=== PATIENT | female | born 1935 | race Hispanic/Latino ===

== ENCOUNTER 2025-07-14 06:04 | Day surgery (SDC) | payer MEDICARE ==
--- NOTE | 2025-07-10 14:41 | EKG ---
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
[2025-07-10 14:49] VITALS: PULSE 58; RESP 17; TEMP 98.2
[2025-07-10 14:58] LABS: IMMATURE GRANULOCYTE ABSOLUTE 0.01 K/uL (0-1); NUCLEATED RED BLOOD CELLS 0.0 % (0.0-0.19); PLATELET COUNT (AUTO) 197 K/uL (130-400); RED BLOOD CELL COUNT(AUTO) 3.90 MIL/uL (4.00-5.50); RED CELL DISTRIBUTION WIDTH 13.9 % (11.0-15.5); WHITE BLOOD COUNT (AUTO) 4.6 K/uL (4.8-10.8)
[2025-07-10 15:01] LABS: CREATININE 0.7 mg/dL (0.5-1.0); GLOMERULAR FILTR. RATE CALC 83.0 mL/min (>90); GLUCOSE,RANDOM 122.0 mg/dL (70-105); SODIUM SERUM 140.0 mmol/L (136-145); UREA NITROGEN, BLOOD 22.0 mg/dL (7-18)
[2025-07-10 15:02] LABS: INR 0.98 (0.85-1.15)
[~2025-07-14] VITALS: Ht 144.8 cm; Wt 44.8 kg
[2025-07-14] VITALS (9 sets, daily range): BP systolic 125–158; BP diastolic 52–80; PULSE 59–69; RESP 11–18; TEMP 98–98.4
[~2025-07-14 06:04] MED LIST: ASPI-1443 PO; ATOR10 PO; CARV3.12 PO; GARL10002 PO; LINA145C PO; LOSA50TA64 PO; MAGN250T10 PO; NIFE-79 PO; PERCT PO; VITAMIN E PO
[2025-07-14 07:01] LABS: APPEARANCE,URINE CLOUDY (CLEAR); GLUCOSE, URINE (UA) NEGATIVE (NEGATIVE); LEUKOCYTE ESTERASE ,URINE NEGATIVE Leu/uL (NEGATIVE); NITRATE,URINE NEGATIVE (NEGATIVE); OCCULT BLOOD,URINE NEGATIVE (NEGATIVE)
[2025-07-14 07:05] LABS: ADD UA MICROSCOPIC YES
[2025-07-14] MEDS ORDERED: LIDOCAINE HCL 400MG/20ML VIAL ONE (07:05)
[2025-07-14] MEDS ORDERED: HEParin-NS 1,000 UNIT/500 ML 1,000 ML IV ONE (07:05)
[2025-07-14] MEDS ORDERED: IODIXANOL 320 MG/ML 100 ML VIAL ONE (07:05)
[2025-07-14] MEDS ORDERED: NITROGLYCERIN 50MG VIAL ONE (07:06)
[2025-07-14 07:23] LABS: SQUAMOUS EPITHELIAL CELL,UR RARE /HPF (0-2)
[2025-07-14] MEDS: 0.9%NACL 1000ML 1,000 ML IV SCH (07:33)
[2025-07-14] MEDS ORDERED: MIDAZOLAM HCL 1 MG/ML 2ML VIAL ONE (07:34)
[2025-07-14] MEDS ORDERED: HEParin-NS 1,000 UNIT/500 ML 500 ML IV ONE (08:43)
[2025-07-14] MEDS ORDERED: ASPIRIN 325MG EC TAB PO ONE (09:45)
[2025-07-14] MEDS ORDERED: DEXTROSE 50%-WATER 50 ML DISP.SYRIN IV PRN (10:00)
[2025-07-14] MEDS ORDERED: 0.9%NACL 1000ML 1,000 ML IV SCH (10:00)
[2025-07-14] MEDS ORDERED: GLUCAGON 1MG KIT 1 MG ML IM PRN (10:00)
--- NOTE | 2025-07-14 10:20 | PRN ---
Procedure:Peripheral Angiogram Procedure Note Procedure Note: Peripheral Angiogram Date/Time of Service: 07/14/2025 Referring Physician: Dr. Echols Procedures Performed: Lower abdominal aortogram, peripheral angiogram with lower extremity arterial runoff, balloon angioplasty, balloon lithotripsy of the distal left posterior tibial artery Indications for Procedure: PAD, Cottle category 5 symptoms (left lower extremity) Nonhealing ulcer on the lateral aspect of the left foot Chronic pain syndrome HTN Description of Procedure: [After informed consent was obtained the patient was prepped and draped in the usual sterile fashion a 6 [place]ian arterial sheath with a hemostatic valve was inserted into the right common femoral artery using a modified Salinger technique on the first past front wall puncture. A 5 [place]ian Omni Flush catheter was then advanced over a soft angled Glidewire into the abdominal aorta and a lower abdominal aortogram with runoff was obtained. The findings are listed below. The Omni flush catheter was then advanced to the left common femoral artery in the left lower extremity arteriogram was obtained. The findings are listed below.] Findings: Lower abdominal aorta: patent Right common iliac artery: patent Right external iliac artery: patent Right internal iliac artery: patent Right common femoral artery: patent Right profunda artery: patent Left common iliac artery: patent Left external iliac artery: patent Left internal iliac artery: patent Left common femoral artery: patent Left profunda artery: patent Left superficial femoral artery: patent with 30% stenosis in the mid segment of the artery. Left popliteal artery: patent Left anterior tibial artery: patent Left dorsalis pedis artery: 100% stenosis in the proximal segment of the artery Left tibioperoneal artery: patent Left peroneal artery: 100% stenosis (ELECTRICIAN YARD = 20mm) in the mid segment of the artery. The artery reconstitutes distally via collateral blood flow Left posterior tibial artery: Diffuse 95% stenosis in the distal segment of the artery. The stenosis extends into the left calcaneal artery Left pedal arch: Incomplete, with slow single-vessel runoff supplying the anterior posterior segment of the left pedal arch. Intervention: After reviewing the above-mentioned findings the decision was made to intervene on the left posterior tibial artery. The soft angled Glidewire was inserted into the Omni flush catheter was advanced to the left popliteal artery. The Omni flush catheter was then removed and the short six Albanian arterial sheath was exchanged for a 65 cm six Albanian destination arterial sheath, which was then placed in the distal left superficial femoral artery. We then administered heparin 75 units/kg x1 dose, clopidogrel 600 mg x 1 dose, and aspirin 325 mg x 1 dose. We then advanced a 0.014 whisper guidewire and 0.014 quick cross catheter across the areas stenosis and into the distal left posterior tibial artery. We then exchanged the whisper guidewire for a 0.014 Fielder XT guidewire which was then advanced to the distal left medial calcaneal artery. We then advanced the quick cross catheter into the distal left medial calcaneal artery. We then removed the guidewire and injected contrast into the quick cross catheter to ensure that were in the true lumen of the artery. Once this was ensured we advanced the 0.014 Fielder XT guidewire back into the quick cross catheter and placed it in the distal left medial calcaneal artery. We then removed the quick cross catheter and performed balloon angioplasty (1.5 x 40 mm > 2.0 x 20 mm > 2.0 x 40 mm), balloon lithotripsy (shockwave 2.5 x 80 mm) and balloon angioplasty (chocolate 2.5 x 40 mm) in the distal left posterior tibial artery. The balloons were then removed and repeat angiography was performed, which revealed a widely patent left posterior tibial artery, without dissection, perforation, and brisk two-vessel runoff supplying the anterior and posterior segments of the left pedal arch. The 0.014 Fielder XT guidewire and 65 cm six Albanian destination arterial sheath, were then removed and the arteriotomy site in the right common femoral artery was successfully closed using a six Albanian Angio-Seal device. The patient tolerated the procedure well and without issue. Estimated Blood Loss: [40]mL Complications: [ None] Conclusion: 1. PAD, Cottle category 5 symptoms (left lower extremity), diffuse 95% stenosis in the distal left posterior tibial artery status post successful treatment with balloon angioplasty, balloon lithotripsy, and balloon angioplasty, resulting in a widely patent artery, without dissection, perforation, and brisk two-vessel runoff supplying the anterior and posterior s egments of the left pedal arch. 2. Nonhealing ulcer on the lateral aspect of the left foot 3. Chronic pain syndrome 4. HTN Recommendations/Instructions: 1. Goal-directed medical therapy. 2. Start clopidogrel 75 mg daily. Continue aspirin 81 mg daily. The patient will remain on DAPT for a minimum of 6 months. 3. Groin precaution 4. 4 hours of bedrest 5. Start NS at 100ml/hr x 3 hours 6. No heavy lifting lower extremity exercise for the next two weeks. 7. Continue with wound care. 8. Please have the patient follow up with Dr. Echols in 1-2 weeks. ELLYN ECHOLS MD Jul 14, 2025 10:20
--- NOTE | 2025-07-14 10:41 | NUR ---
Right Femoral site seeping sangious fluid to gauze. No evidence of bruising or hematoma. Dr. Echols at bedside. DSTAT applied to puncture site. Pedal pulse palpated strong to BLE's. Dr Echols stated he will call Loli SAMSON at this time. VS wnl. Patient alert and oriented to situation. Instructed to keep right leg straight. Voiced understanding. Bedpan used. 300 ml's [place] urine. SR's up x 2. Call light in reach.
--- NOTE | 2025-07-14 12:33 | NUR ---
DSTAT x 3. Held pressure a total of [address] Echols at [facility]. He stated he would send [employer] Nurse to inject area if not stopped. New DSTAT clean and dry at this time. No evidence of bleeding, bruising or hematome. Spoke to Cindy from [employer]. She will send someone to assess site.
[2025-07-14] MEDS ORDERED: CLOP-31 PO (12:42)
[2025-07-14] MEDS ORDERED: LIDOCAINE 1%-EPI 1:100,000 20 ML VIAL ONE (12:49)
--- NOTE | 2025-07-14 13:05 | NUR ---
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 Hemostasis achieved.
--- NOTE | 2025-07-14 13:16 | NUR ---
ORDERS RECEIVED PER DR JOHNSON. OOZING NOTED TO RIGHT FEMORAL PUNCTURE SITE AFTER D-STAT DRESSING REMOVED. NO HEMATOMA NOTED TO SITE. LIDOCAINE WITH EPINEPHRINE INJECTED TO RIGHT GROIN SITE. NO ADVERSE REACTIONS NOTED. PATIENT TOLERATED WELL. HEMOSTASIS OBTAINED. D-STAT AND DRESSING APPLIED. PRIMARY NURSE ASHANTI SALMERON NOTIFIED.
--- NOTE | 2025-07-14 14:11 | NUR ---
Full and complete discharge instructions given to Patient and Family both verbally and in writing. Explained Angiogram procedure precautions and follow up. Right groin site clean dry and intact. No evidence of bleeding, bruising or hematoma. Pedal pulses intact to BLE's. All questions answered. PIV removed with catheter tip intact. Niece at bedside appearing supportive. W/C to POV with Niece to home.
== END 2025-07-14 14:17 | disposition home or self-care (01) ==
LOC: DAH 06:04
PROVIDERS: ATTEND Internal Medicine Cardiovascular Disease
DX: E11.51 Type 2 diabetes mellitus with diabetic peripheral angiopathy without gangrene (principal); I70.202 Unspecified atherosclerosis of native arteries of extremities, left leg; L97.529 Non-pressure chronic ulcer of other part of left foot with unspecified severity; G89.4 Chronic pain syndrome; I70.92 Chronic total occlusion of artery of the extremities; Z79.01 Long term (current) use of anticoagulants; E78.5 Hyperlipidemia, unspecified; I25.10 Atherosclerotic heart disease of native coronary artery without angina pectoris; I48.91 Unspecified atrial fibrillation; I12.9 Hypertensive chronic kidney disease with stage 1 through stage 4 chronic kidney disease, or unspecified chronic kidney disease; N18.2 Chronic kidney disease, stage 2 (mild); E11.22 Type 2 diabetes mellitus with diabetic chronic kidney disease; I21.A1 Myocardial infarction type 2; R01.1 Cardiac murmur, unspecified; Z98.890 Other specified postprocedural states; Z79.82 Long term (current) use of aspirin; Z79.899 Other long term (current) drug therapy
CPT/HCPCS: 80048; 83880; 85025; 85610; 85730; 36415 ×2; 93005; 75625; 75716; 99156; 99157 ×6; 85347 ×2; 81001; C9772; C1887; C1725 ×5; C1894 ×2; C1769 ×3; C1760; C1893; J3010; J3490 ×3; J1644 ×3; J2250; Q9967; A4215 ×2; A6402; A4335; A4222; A4221; A4663; A4216; A4606; A4223 ×3; A4554; 96360; 96361